=== PATIENT | female | born 1955 | race Two or more races ===

== ENCOUNTER 2018-05-14 10:28 | Outpatient (CLI) | payer OTHER | END 2018-05-14 11:00 | disposition home or self-care (01) | LOC: NUCLEAR 10:28 | DX: M81.0 Age-related osteoporosis without current pathological fracture (principal) ==

== ENCOUNTER 2018-11-04 10:36 | Outpatient (CLI) | payer OTHER | END 2018-11-04 10:59 | disposition home or self-care (01) | LOC: MAMO-SONO 10:36 | DX: N60.12 Diffuse cystic mastopathy of left breast (principal); N60.11 Diffuse cystic mastopathy of right breast; Z12.31 Encounter for screening mammogram for malignant neoplasm of breast ==

== ENCOUNTER 2019-07-16 10:13 | Outpatient (CLI) | payer OTHER | END 2019-07-16 11:00 | disposition home or self-care (01) | LOC: NUCLEAR 10:13 | DX: M81.0 Age-related osteoporosis without current pathological fracture (principal) ==

== ENCOUNTER 2020-03-15 13:13 | Outpatient (CLI) | payer OTHER | END 2020-03-15 13:26 | disposition home or self-care (01) | LOC: MAMO-SONO 13:13 | PROVIDERS: ATTEND Obstetrics & Gynecology | DX: Z12.31 Encounter for screening mammogram for malignant neoplasm of breast (principal); N60.11 Diffuse cystic mastopathy of right breast; N60.12 Diffuse cystic mastopathy of left breast ==

== ENCOUNTER 2021-01-18 12:30 | Outpatient (CLI) | payer OTHER | END 2021-01-18 12:35 | disposition home or self-care (01) | LOC: NUCLEAR 12:30 | PROVIDERS: ATTEND Student in an Organized Health Care Education/Training Program | DX: M81.0 Age-related osteoporosis without current pathological fracture (principal) ==

== ENCOUNTER 2021-09-23 11:34 | Outpatient (CLI) | payer OTHER | END 2021-09-23 11:39 | disposition home or self-care (01) | LOC: RAD 11:34 | PROVIDERS: ATTEND Podiatrist Foot Surgery | DX: M20.41 Other hammer toe(s) (acquired), right foot (principal); M20.42 Other hammer toe(s) (acquired), left foot ==

== ENCOUNTER 2021-10-24 14:43 | Outpatient (CLI) | payer OTHER | END 2021-10-24 14:55 | disposition home or self-care (01) | LOC: MAMO-SONO 14:43 | PROVIDERS: ATTEND Obstetrics & Gynecology | DX: N60.11 Diffuse cystic mastopathy of right breast (principal); N60.12 Diffuse cystic mastopathy of left breast ==

== ENCOUNTER 2021-11-18 09:01 | Outpatient (CLI) | payer OTHER | END 2021-11-18 09:06 | disposition home or self-care (01) | LOC: RAD 09:01 | PROVIDERS: ATTEND Specialist | DX: I10 Essential (primary) hypertension (principal) ==

== ENCOUNTER 2023-04-04 09:00 | Outpatient (CLI) | payer OTHER | END 2023-04-04 09:18 | disposition home or self-care (01) | LOC: MAMO-SONO 09:00 | PROVIDERS: ATTEND Family Medicine Geriatric Medicine | DX: Z12.31 Encounter for screening mammogram for malignant neoplasm of breast (principal) ==

== ENCOUNTER 2023-04-10 13:39 | Outpatient (CLI) | payer OTHER | END 2023-04-10 13:41 | disposition home or self-care (01) | LOC: NUCLEAR 13:39 | PROVIDERS: ATTEND Family Medicine Geriatric Medicine | DX: M81.0 Age-related osteoporosis without current pathological fracture (principal) ==

== ENCOUNTER 2025-01-08 14:10 | Outpatient (CLI) | payer OTHER | END 2025-01-08 14:12 | disposition home or self-care (01) | LOC: MAMO-SONO 14:10 | DX: Z12.39 Encounter for other screening for malignant neoplasm of breast (principal); Z12.31 Encounter for screening mammogram for malignant neoplasm of breast ==